=== PATIENT | male | born 1990 | race Caucasian/White ===

== ENCOUNTER 2020-01-29 12:44 | Observation (INO) | payer BC ==
[2020-01-29] VITALS (9 sets, daily range): BP systolic 122–135; BP diastolic 55–80; PULSE 63–91; TEMP 98–98.1
[~2020-01-29] VITALS: Ht 190.5 cm; Wt 135.8 kg
[2020-01-29] MEDS ORDERED: SINGULAIR 110 MG/TAB PO (15:30)
[2020-01-29] MEDS ORDERED: VENLAFAXINE225 MG PO (15:30)
[2020-01-29] MEDS ORDERED: FLONASE NASAL S16 GM NS (15:31)
--- NOTE | 2020-01-29 16:23 | NUR ---
Patient and arrived via POV to the floor at approximately 1430. Patient is alert and oriented, answers questions appropriately. Patient c/o RLQ pain, describes it as dull and constant with intermittent sharpness. Administered PRN morphine per order. Patient off floor at approximately 1530 to PACU via bed.
--- NOTE | 2020-01-29 18:02 | NUR ---
Patient arrived to floor from PACU via bed at approximately 1755. Patient is sleepy but rouses easily and is alert and oriented while awake. Post op checks initated. Patient denies pain at this time, and is sitting up in bed attempting to eat dinner. Call light within reach.
[2020-01-30 00:48] VITALS: BP 111/47; PULSE 57; TEMP 98
[2020-01-30 04:40] VITALS: BP 134/67; PULSE 58; TEMP 98.2
--- NOTE | 2020-01-30 05:36 | NUR ---
RESTING QUIETLY. NORCO FOR PAIN. NO c/o N/V.
[2020-01-30] MEDS ORDERED: NORCO 325 MG-51 TAB PO (07:04)
[2020-01-30 07:22] VITALS: BP 134/74; PULSE 62; TEMP 98
--- NOTE | 2020-01-30 08:58 | NUR ---
Patient alert and oriented, answers questions appropriately. See assessment. Abdomen soft, non tender, non distended. Bowel sounds active x4 quads. +Flatus. Abdominal lap sites with edges well approximated, no redness or drainage noted. Post op exercises reviewed with patient. No c/o at this time.
--- NOTE | 2020-01-30 09:17 | NUR ---
Initial visit; Patient thanked [employer] for looking in on him and offering spiritual care.
--- NOTE | 2020-01-30 09:23 | NUR ---
Discharge instructions reviewed with patient and spouse, verbalized understanding. Discharged via wheelchair to auto/home with spouse at 0905.
== END 2020-01-30 09:05 | disposition home or self-care (01) ==
LOC: MEDICAL 12:44 → SURG 14:21
PROVIDERS: ADMIT Surgery
DX: K35.80 Unspecified acute appendicitis (principal); E66.9 Obesity, unspecified; Z68.37 Body mass index [BMI] 37.0-37.9, adult; Z88.8 Allergy status to other drugs, medicaments and biological substances; Z88.1 Allergy status to other antibiotic agents
CPT/HCPCS: G0378; G0379; J1100; J1885; J2250; J2270; J2405; J2704; J3010; J7120